=== PATIENT | female | born 1985 | race Asian ===

== ENCOUNTER 2019-03-02 15:41 | Day surgery (SDC) | payer OTHER ==
[~2019-03-02] VITALS: Ht 162.6 cm; Wt 95.3 kg
[2019-03-02 17:00] LABS: Basophils # (auto) 0.1 uL; Basophils % (auto) 0.4 % (0.0-2.0); Eosinophils # (auto) 0.1 uL; Eosinophils % (auto) 0.4 % (0.0-7.0); Hematocrit 38.7 % (36.0-46.0); Hemoglobin 13.1 g/dL (12.2-16.2); Lymphocytes # (auto) 1.4 uL; Lymphocytes % (auto) 10.4 % (10.0-50.0); Mean Corpuscular Hemoglobin 28.8 pg (28.0-32.0); Mean Corpuscular Volume 84.9 fL (80.0-100.0); Monocytes # (auto) 0.5 uL; Monocytes % (auto) 3.9 % (0.0-12.0); Neutrophils # (auto) 11.2 uL; Neutrophils % (auto) 84.9 % (37.0-80.0); Nucleated Red Blood Cells % 0.1 %; Platelet Count (auto) 216 10^3/uL (140-450); Red Blood Cells 4.56 10^6/uL (4.0-5.20); Red Cell Distribution Width 14.1 % (11.8-14.3); White Blood Cell 13.2 10^3/uL (4.4-10.8)
[2019-03-02] MEDS ORDERED: SODIUM CHLORIDE 0.9% 1,000 ML IV ONE (17:11)
[2019-03-02 17:26] LABS: Albumin 3.4 g/dL (3.4-5.0); BUN/Creatinine Ratio 11.4; Calcium 8.9 mg/dL (8.5-10.1); Potassium 3.7 mmol/L (3.5-5.1)
[2019-03-02 17:32] LABS: Bilirubin, Total 0.3 mg/dL (0.2-1.0); Total Protein 7.8 g/dL (6.4-8.2)
[2019-03-02] MEDS ORDERED: LACT. RINGERS/OXYTOCIN 20UNITS 1,000 ML IV ONE ×2 (20:45→21:00)
[2019-03-02] MEDS ORDERED: SODIUM CHLORIDE LOCK 10 ML ONE (21:24)
[2019-03-02] MEDS ORDERED: fentaNYL CITRATE 100 MCG/2 ML VL ONE (21:24)
[2019-03-02] MEDS ORDERED: ONDANSETRON HCL 4 MG/2 ML VIAL ONE (21:24)
[2019-03-02] MEDS ORDERED: PROPOFOL 10 MG/ML 20 ML IV ONE (21:24)
[2019-03-02] MEDS ORDERED: MIDAZOLAM HCL 1MG/1ML-2 ML VIAL ONE (21:24)
[2019-03-02 21:25] LABS: Hematocrit 36.9 % (36.0-46.0); Hemoglobin 12.2 g/dL (12.2-16.2)
[2019-03-02] MEDS ORDERED: HYDROmorphone HCL 2 MG/ML VL IV PRN (21:30)
[2019-03-02] MEDS ORDERED: MORPHINE SULFATE 4 MG/ML SYR/VIAL IV PRN (21:30)
[2019-03-02] MEDS ORDERED: fentaNYL CITRATE 100 MCG/2 ML VL IV PRN (21:30)
[2019-03-02] MEDS ORDERED: ONDANSETRON HCL 4 MG/2 ML VIAL IV PRN (21:30)
[2019-03-02 21:33] LABS: INR 1.06 (0.9-1.15); Partial Thromboplastin Time 25.2 sec (23.64-32.05)
[2019-03-02] MEDS ORDERED: ceFAZolin 1GM/50ML 50 ML IV ONE (21:40)
[2019-03-02] MEDS ORDERED: RHO (D) IMMUNE GLOBULIN 300 MCG INJ IM PRN (21:45)
[2019-03-02 22:47] VITALS: BP 109/75
== END 2019-03-02 22:55 | disposition home or self-care (01) ==
LOC: ER 16:00 → SUR 16:01 → ER 22:41 → SUR 22:55
PROVIDERS: ATTEND Obstetrics & Gynecology
DX: O03.4 Incomplete spontaneous abortion without complication (principal); I10 Essential (primary) hypertension
CPT/HCPCS: 36415; 59812; 76801; 80053; 84702; 85014; 85018; 85025; 85610; 85730; 86850; 86900; 86901; 88305; 93005; J0690; J2250; J2405; J2590; J2704; J3010

== ENCOUNTER 2019-09-06 15:08 | Inpatient (IN) | payer OTHER ==
[~2019-09-06] VITALS: Ht 162.6 cm; Wt 103.5 kg
[2019-09-06] MEDS: DOXYCYCLINE 100 MG TAB/CAP PO SCH (01:30)
[2019-09-06] MEDS ORDERED: SODIUM CHLORIDE 0.9% 1,000 ML IVB ONE (17:18)
[2019-09-06] MEDS ORDERED: SODIUM CHLORIDE 0.9% 1,000 ML IV ONE (17:18)
[2019-09-06] MEDS ORDERED: ASCORBIC ACID 500 MG TAB PO ONE (17:30)
[2019-09-06] MEDS ORDERED: cefTRIAXone 1GM/50ML D5W 50 ML IV ONE (17:30)
[2019-09-06] MEDS ORDERED: AZITHROMYCIN 500MG/ 250ML 250 ML IV ONE (17:30)
[2019-09-06] MEDS ORDERED: DexAMETHasone SOD PHOS 4 MG/1ML SDV INJ IV ONE (17:30)
[2019-09-06] MEDS ORDERED: ZINC SULFATE 220mg CAP or TAB PO ONE (17:30)
[2019-09-06 18:36] LABS: Basophils # (auto) 0 10 ^3/uL (0-0.2); Basophils % (auto) 0.2 % (0.0-2.0); Eosinophils # (auto) 0 10 ^3/uL (0-0.8); Hematocrit 45.9 % (36.0-46.0); Hemoglobin 15.5 g/dL (12.2-16.2); Lymphocytes # (auto) 0.8 10 ^3/uL (0.4-5.4); Lymphocytes % (auto) 14.3 % (10.0-50.0); Mean Corpuscular Hemoglobin 27.3 pg (28.0-32.0); Mean Corpuscular Hgb Conc. 33.7 g/dL (32.0-36.0); Mean Corpuscular Volume 81.1 fL (80.0-100.0); Monocytes # (auto) 0.3 10 ^3/uL (0-1.3); Monocytes % (auto) 4.9 % (0.0-12.0); Neutrophils # (auto) 4.6 10 ^3/uL (1.6-8.6); Neutrophils % (auto) 80.6 % (37.0-80.0); Nucleated Red Blood Cells % 0.3 %; Platelet Count (auto) 203 10^3/uL (140-450); Red Blood Cells 5.66 10^6/uL (4.0-5.20); Red Cell Distribution Width 14.2 % (11.8-14.3); White Blood Cell 5.7 10^3/uL (4.4-10.8)
[2019-09-06 18:55] LABS: Albumin 3.8 g/dL (3.4-5.0); Calcium 8.7 mg/dL (8.5-10.1); Magnesium 2.1 mg/dL (1.6-2.6); Potassium 3.6 mmol/L (3.5-5.1)
[2019-09-06 18:57] LABS: Bilirubin, Total 0.4 mg/dL (0.2-1.0); Total Protein 9.1 g/dL (6.4-8.2)
[2019-09-06] MEDS ORDERED: ASCORBIC ACID 1,000 MG TAB PO ONE (19:15)
[2019-09-06] MEDS ORDERED: SODIUM CHLORIDE 0.9% 1,000 ML IV SCH (20:57)
[2019-09-06] MEDS ORDERED: ONDANSETRON HCL 4 MG/2 ML VIAL IV PRN (21:00)
[2019-09-06] MEDS ORDERED: DOCUSATE SOD 100 MG CAP PO PRN (21:00)
[2019-09-06] MEDS ORDERED: ACETAMINOPHEN 500 MG TAB PO PRN (21:00)
[2019-09-06] MEDS ORDERED: ACETAMINOPHEN 325 MG TAB PO PRN (21:00)
[2019-09-06] MEDS ORDERED: LORazepam 0.5 MG TAB PO PRN (21:00)
[2019-09-06] MEDS ORDERED: TEMAZEPAM 15 MG CAP PO PRN (21:00)
[2019-09-06] MEDS ORDERED: MORPHINE SULF INJ 2 MG/ML SYRINGE 1ML IV PRN (21:00)
[2019-09-06] MEDS ORDERED: HYDROcodone-ACET 5/325MG TAB PO PRN (21:00)
[2019-09-06] MEDS ORDERED: ALBUTEROL SULF HFA 90MCG INH 200DOSE IN SCH (22:00)
[2019-09-07 01:00] VITALS: BP 111/72
[2019-09-07 01:30] VITALS: BP 114/63
--- NOTE | 2019-09-07 01:30 | NUR ---
Admit from covid unit EKATERINA CEBALLOS admitted to med surg unit after SBAR received. Patient oriented to ELSA CROUCH, RN primary RN, unit, room, bed, and unit policies regarding patient care and visiting hours. Patient now on continuous monitoring. Patient placed on bedside oxygen, weighed by bedscale and encouraged to call if they need something. All questions and concerns addressed, patient verbalized understanding. Will continue to monitor.
[2019-09-07 05:00] VITALS: BP 114/66
--- NOTE | 2019-09-07 07:25 | NUR ---
Closing note Patient asleep in bed. No sob or distress noted. Chest evenly rising. Endorsed care to day shift RN Jodie
[2019-09-07 09:00] VITALS: BP 115/71
[2019-09-07 09:41] LABS: Basophils # (auto) 0 10 ^3/uL (0-0.2); Eosinophils # (auto) 0 10 ^3/uL (0-0.8); Hematocrit 40.5 % (36.0-46.0); Hemoglobin 13.6 g/dL (12.2-16.2); Lymphocytes # (auto) 0.8 10 ^3/uL (0.4-5.4); Lymphocytes % (auto) 26.5 % (10.0-50.0); Mean Corpuscular Hemoglobin 27.6 pg (28.0-32.0); Mean Corpuscular Hgb Conc. 33.6 g/dL (32.0-36.0); Monocytes # (auto) 0.2 10 ^3/uL (0-1.3); Monocytes % (auto) 7.1 % (0.0-12.0); Neutrophils % (auto) 65.4 % (37.0-80.0); Nucleated Red Blood Cells % 0.1 %; Platelet Count (auto) 173 10^3/uL (140-450); Red Blood Cells 4.94 10^6/uL (4.0-5.20); Red Cell Distribution Width 14.3 % (11.8-14.3); White Blood Cell 3.1 10^3/uL (4.4-10.8)
[2019-09-07 09:58] LABS: Albumin 3.1 g/dL (3.4-5.0); Calcium 8.2 mg/dL (8.5-10.1); Potassium 3.7 mmol/L (3.5-5.1)
[2019-09-07] MEDS: DOXYCYCLINE 100 MG TAB/CAP PO SCH (09:59)
[2019-09-07] MEDS ORDERED: ENOXAPARIN SOD 40 MG/0.4 ML SYRINGE SC SCH (10:00)
[2019-09-07] MEDS ORDERED: ZINC SULFATE 220mg CAP or TAB PO SCH (10:00)
[2019-09-07] MEDS ORDERED: LOSARTAN POTASSIUM 25 MG TAB PO SCH (10:00)
[2019-09-07] MEDS ORDERED: ASCORBIC ACID 1,000 MG TAB PO SCH (10:00)
[2019-09-07] MEDS ORDERED: CHOLECALCIFEROL (VITD3) 1,000IU=25mCg TAB PO SCH (10:00)
[2019-09-07 10:01] LABS: BUN/Creatinine Ratio 13.4; Bilirubin, Total 0.4 mg/dL (0.2-1.0); Total Protein 7.8 g/dL (6.4-8.2)
[2019-09-07] MEDS ORDERED: DOXY-286 PO (11:34)
[2019-09-07 12:41] VITALS: BP 137/68
--- NOTE | 2019-09-07 13:17 | NUR ---
Discharge instructions given as ordered. Encourage to follow up with PMD as instructed. All questions and concerns addressed. Patient verbalized understanding. Medication reconciliation form completed and copy given to patient. IV removed with catheter intact, pressure dressing applied. . Patient taken to vehicle via wheelchair with all personal belongings, accompanied by staff. No distress noted at time of departure.
== END 2019-09-07 13:20 | disposition home or self-care (01) | DRG 195 ==
LOC: ER 15:08 → OVERFLOW 15:09 → EAST 23:36 → WEST WING 09-07 02:19
PROVIDERS: ADMIT Hospitalist; ATTEND Internal Medicine
DX: J18.9 Pneumonia, unspecified organism (principal); E66.9 Obesity, unspecified; I10 Essential (primary) hypertension; Z20.828 Contact with and (suspected) exposure to other viral communicable diseases; Z68.39 Body mass index [BMI] 39.0-39.9, adult
CPT/HCPCS: 36415; 71045; 80053; 83735; 84702; 85025; 96365; 96366; 96367; 96375; G0378; J0696; J1100